=== PATIENT | male | born 1965 | race Caucasian/White ===

== ENCOUNTER 2017-04-14 05:16 | Observation (INO) | payer OTHER ==
[~2017-04-14] VITALS: Ht 185.4 cm; Wt 127.0 kg
[~2017-04-14 05:16] MED LIST: AUGMENTIN 875 M1 TAB PO; BENZONATATE200 MG PO; CARVEDILOL12.5 MG PO; FUROSEMIDE20 MG PO; POTASSIUM CHLO10 ME1 PO; PRAVASTATIN SOD80 MG PO; PREDNISONE 10MG10 M1 PO; PREDNISONE20 MG PO; PRINIVIL 5MG5 MG PO; WARFARIN SODIUM10 MG PO; ZOLPIDEM TARTRAT5 MG PO
--- NOTE | 2017-04-14 05:21 | ED NEURO DEFICIT/STROKE ---
See Addendum History of Present Illness General Chief Complaint: General Adult Stated Complaint: "THINK HES HAVING A STROKE" PER Source: patient, family Exam Limitations: no limitations Vital Signs & Intake/Output Vital Signs & Intake/Output Vital Signs Date Time Temp Pulse Resp B/P B/P Pulse O2 O2 Flow FiO2 Mean Ox Delivery Rate 04/14 0732 97.0 82 18 120/78 97 Room Air 04/14 0727 97.0 82 18 120/78 97 Room Air 04/14 0651 123/72 04/14 0543 98 Room Air 04/14 0527 98.6 98 18 130/77 97 Room Air Allergies Coded Allergies: NO KNOWN ALLERGIES (04/23/13) Reconcile Medications AMOXICILLIN/POTASSIUM CLAV (Augmentin 875-125 Tablet) 875 MG/125 MG TAB 1 TAB PO BID BRONCHITIS Aspirin (Ecotrin*) 81 MG TABLET.DR 1 TAB PO DAILY HEART HEALTH (Reported) Benzonatate 200 MG CAPSULE 1 TAB PO Q8H PRN COUGH Bisacodyl (Ducodyl) 5 MG TABLET.DR 1 TAB PO DAILY CONSTIPATION (Reported) Carvedilol 12.5 MG TABLET 1 TAB PO BID BLOOD PRESSURE (Reported) Furosemide 20 MG TABLET 1 TAB PO DAILY WATER (Reported) Lisinopril (Prinivil) 5 MG TABLET 1 TAB PO DAILY BP (Reported) Potassium Chloride 10 MEQ TABLET.ER 1 TAB PO DAILY SUPPLEMENT (Reported) Pravastatin Sodium 80 MG TABLET 1 TAB PO DAILY CHOLESTEROL (Reported) Prednisone 20 MG TAB 2 TAB PO DAILY BREATHING Prednisone 10 MG TABLET 0 PO DAILY INFLAMMATION DAY 1: 6 TABS PO QD DAY 2: 5 TABS PO QD DAY 3: 4 TABS PO QD DAY 4: 3 TABS PO QD DAY 5: 2 TABS PO QD DAY 6: 1 TAB PO QD Warfarin Sodium 10 MG TABLET 1 TAB PO DAILY BLOOD THINNER (Reported) Zolpidem Tartrate 5 MG TAB 1 TAB PO DAILY INSOMNIA (Reported) Triage Nurses Notes Reviewed? yes Onset: Gradual Duration: hour(s): Timing: recent history Severity: moderate New Weakness: RUE Altered Sensations: RUE Impaired Ability: difficult to speak Baseline: alert, oriented x 3 Associated Symptoms: confusion, weakness HPI: 52 yo gentleman, h/o cva on coumadin, presents with difficulty speaking, increased drooling, worsening right sided weakness and difficulty with coordination. His also notes worse coordination of his right upper arm with slight weakness that is worse at baseline. Past History Travel History Traveled to [place] past 21 day No Medical History Any Pertinent Medical History? see below for history Neurological: STROKES (X3) (ON COUMADIN Cardiovascular: hypertension, hyperlipidemia, myocardial infarction Respiratory: asthma, bronchitis Gastrointestinal: constipation Psychiatric: depression History of MRSA: No History of VRE: No History of CDIFF: No Surgical History Surgical History: none Psychosocial History Who do you live with Spouse Services at Home Nursing, Occupational Therapy, Physical Therapy What is your primary language Hungarian Family History Hx Contributory? No Review of Systems Review of Systems Constitutional: Reports: no symptoms. EENTM: Reports: no symptoms. Respiratory: Reports: no symptoms. Cardiovascular: Reports: no symptoms. GI: Reports: no symptoms. Genitourinary: Reports: no symptoms. Musculoskeletal: Reports: no symptoms. Skin: Reports: no symptoms. Neurological/Psychological: Reports: no symptoms. Hematologic/Endocrine: Reports: no symptoms. Immunologic/Allergic: Reports: no symptoms. All Other Systems: Reviewed and Negative Physical Exam Physical Exam General Appearance: well developed/nourished, no apparent distress Head: atraumatic, normal appearance Eyes: Bilateral: normal appearance, PERRL, EOMI. Ears, Nose, Throat: normal ENT inspection, moist mucous membrane, hearing grossly normal Neck: normal inspection, supple Respiratory: normal breath sounds, chest non-tender, no respiratory distress, quiet respiration, lungs clear Cardiovascular: regular rate/rhythm, edema, normal peripheral pulses Gastrointestinal: normal bowel sounds, soft, non-tender, no organomegaly Back: normal inspection, normal range of motion Extremities: normal range of motion, evidence of injury, injury present Psychiatric: awake, alert Cranial Nerves: normal hearing, normal speech, PERRL, abnormal eye position Coordination/Gait: finger to nose with the right hand is slower than the left with increased Mrs. coordination. Motor/Sensory: right hand and elbow with 4+ out of 5 strength. Light touch intact. Reflexes: 1+: bicep (R), bicep (L), knee (R), knee (L). Core Measures CVA/TIA Diagnosis: Yes NIH Stroke Scale: Total 6 Comment: last known prior to going to bed... >4.5 hours... no need for lytics. Severe Sepsis Present: No Septic Shock Present: No Progress Differential Diagnosis: CVA versus TIA versus other Plan of Care: Orders Procedure Date/time Status Nothing by Mouth 04/14 B Active Intake & Output 04/14 0724 Active Patient Data 04/14 648 Active Saline Lock 04/[address] in observation 04/14 644 Active Misc Message 04/14 644 Active ED Holding Orders 04/14 644 Active Vital Signs 04/14 644 Active Code Status 04/14 644 Active FingerStick- Glucose 04/14 0540 Active EKG 04/14 534 Active TROPONIN LEVEL 04/14 519 Complete PARTIAL THROMBOPLASTIN TIME 04/14 519 Complete PROTHROMBIN TIME 04/14 519 Complete COMPREHENSIVE METABOLIC PANEL 04/14 519 Complete CBC WITHOUT DIFFERENTIAL 04/14 519 Complete Current Medications Sig/Sathya Start time Last Medication Dose Stop Time Status Admin Aspirin 325 MG ONCE ONE 04/14 645 UNVr 04/14 (Aspirin) 04/14 646 0652 Laboratory Tests 04/14/17 0525: Anion Gap 11, Estimated GFR > 60, BUN/Creatinine Ratio 17.8, Glucose 117 H, Calcium 8.6, Total Bilirubin 1.1, AST 23, ALT 42, Alkaline Phosphatase 69, Troponin I < 0.01, Total Protein 7.3, Albumin 4.1, Globulin 3.2, Albumin/ Globulin Ratio 1.3, PT 36.8 H, INR 3.55 H, APTT 40 H, CBC w Diff NO MAN DIFF REQ, RBC 4.59 L, MCV 90.0, MCH 30.5, RDW 13.7, MPV 7.9, Gran % 80.1 H, Lymphocytes % 9.2 L, Monocytes % 9.0, Eosinophils % 1.3, Basophils % 0.4, Absolute Granulocytes 10.9 H, Absolute Lymphocytes 1.3, Absolute Monocytes 1.2 H, Absolute Eosinophils 0.2, Absolute Basophils 0.1, PUBS MCHC 33.9 Diagnostic Imaging: Viewed by Me: Radiology Read, CT Scan. Discussed w/RAD: Radiology Read, CT Scan. Radiology Impression: head ct... chronic changes... non acute. Initial ED EKG: normal axis, normal intervals, normal p-waves, normal QRS complex, normal sinus rhythm Comments: PATIENT: MARIA DE JESUS MORIN PRESENT AGE: 52 PATIENT ACCOUNT NO: [id number] : 64 LOCATION: [facility] ORDERING PHYSICIAN: ADITI MIDDLETON MD SERVICE DATE: 04/14/17 EXAM TYPE: RAD - XRY-PORTABLE CHEST XRAY XR PORTABLE CHEST CLINICAL INFORMATION: CVA. COMPARISON: Chest x-ray July 09, 2016. TECHNIQUE: Portable frontal view of the chest was obtained. FINDINGS: Left pectoral dual-lead pacemaker is redemonstrated. Chronic right pleural thickening at the costophrenic angle. No focal consolidation, pleural effusion, or pneumothorax. There is linear atelectasis at the lung bases. IMPRESSION: No acute pulmonary process. DICTATED BY: ELMER GRAVES MD DATE/TIME DICTATED:04/14/17620 RADIO SCRIPT WRITER:MORRIS DATE/TIME TRANSCRIBED:04/14/17620 CONFIDENTIAL, DO NOT COPY WITHOUT APPROPRIATE AUTHORIZATION. <Electronically signed in Other Vendor System> SIGNED BY: ELMER GRAVES MD 04/14/17627 Departure Departure Disposition: STILL A PATIENT Condition: Stable Clinical Impression Primary Impression: CVA (cerebral vascular accident) Referrals: RACIEL ARNOLD MD (PCP/Family) Departure Forms: Customer Survey General Discharge Information Comments 04/14/17, 6:30pm...discussed with dr. miranda who will evaluate pt this morning... 6 :40am... discussed with dr. arnold Observation Note Spoke With: RACIEL ARNOLD MD Physician Advisor Notified: SRI ACEVEDO,PINO Doss Place Patient In: Non-ED OBS Care Area Rationale for Observation: My rational for observation is as follows . see above.
--- NOTE | 2017-04-14 05:28 | NUR ---
52yo SONA POPEO RM 6 W/ WHO STATES PT "MAY BE HAVING ANOTHER STROKE" SHE STATES YESTERDAY HE BEGAN W/INCREASED DROOLING, R SIDED WEAKNESS IS WORSENED. HX CVA X 3
--- NOTE | 2017-04-14 05:41 | NUR ---
LABS DRAWN -- LAV,BLUE,SST ALL SEMT TO LAB
[2017-04-14 05:46] LABS: ABSOLUTE BASOPHIL COUNT 0.1 /CUMM (0.0-0.2); ABSOLUTE EOSINOPHIL COUNT 0.2 /CUMM (0.0-0.7); ABSOLUTE GRANULOCYTE CT 10.9 /CUMM (1.4-6.5); ABSOLUTE LYMPH COUNT 1.3 /CUMM (1.2-3.4); ABSOLUTE MONOCYTE COUNT 1.2 /CUMM (0.10-0.60); BASOPHIL % 0.4 % (0.0-2.0); EOSINOPHIL % 1.3 % (0-5); GRANULOCYTE % 80.1 % (42.2-75.2); HEMATOCRIT 41.3 % (42-52); MEAN CORPUSCULAR HGB 30.5 PG (27.0-31.0); MEAN CORPUSCULAR HGB CONC 33.9 G/DL (33.0-37.0); MEAN PLATELET VOLUME 7.9 FL (7.4-10.4); PLATELET COUNT 224 /CUMM (130-400); RBC DISTRIBUTION WIDTH 13.7 % (11.5-14.5); RED BLOOD CELL CT 4.59 /CUMM (4.70-6.10); WHITE BLOOD CELL COUNT 13.7 /CUMM (4.8-10.8)
[2017-04-14 05:54] LABS: PT 36.8 SEC (9.4-12.5); PTT 40 SEC (25-37)
[2017-04-14] MEDS ORDERED: ASPIRIN EC81 M1 PO (05:54)
[2017-04-14] MEDS ORDERED: DUCODYL5 M1 PO (05:55)
--- NOTE | 2017-04-14 05:56 | NUR ---
TO CT VIA STRETCHER
--- NOTE | 2017-04-14 06:14 | NUR ---
RETD FROM CT
--- NOTE | 2017-04-14 06:24 | CT SCAN REPORT ---
EXAMINATION: CT HEAD WITHOUT CONTRAST CLINICAL INFORMATION: Headache. COMPARISON: Head CT February 26, 2014. TECHNIQUE: Contiguous axial imaging was performed from the skull base to vertex without intravenous administration of contrast. FINDINGS: Chronic infarct within the left basal ganglia and chronic left-sided wallerian degeneration redemonstrated. There is also stable hypoattenuation throughout the left centrum semiovale suggesting chronic ischemic change. There is no intracranial hemorrhage, hydrocephalus, extra-axial surface collection, midline shift, or other herniation pattern. Brown to white matter differentiation is diffusely maintained without evidence of an evolved acute territorial infarct. The basilar cisterns are preserved. No significant soft tissue abnormality. No acute osseous abnormality. There is mild mucosal thickening within the maxillary sinuses, ethmoid air cells, and frontal sinuses bilaterally. IMPRESSION: - No acute intracranial abnormality. - Stable chronic ischemic changes.
--- NOTE | 2017-04-14 06:28 | RADIOLOGY REPORT ---
XR PORTABLE CHEST CLINICAL INFORMATION: CVA. COMPARISON: Chest x-ray July 09, 2016. TECHNIQUE: Portable frontal view of the chest was obtained. FINDINGS: Left pectoral dual-lead pacemaker is redemonstrated. Chronic right pleural thickening at the costophrenic angle. No focal consolidation, pleural effusion, or pneumothorax. There is linear atelectasis at the lung bases. IMPRESSION: No acute pulmonary process.
--- NOTE | 2017-04-14 06:35 | NUR ---
DR MIDDLETON SPEAKING W/DR ARNOLD PT TO BE ADMITTED TELE OBS.
--- NOTE | 2017-04-14 07:24 | NUR ---
ASSUMED CARE , PT AWAKE AND ALERT, RESTING ON STRETCHER WITH LIGHTS DIMMED WATCHING TV, PT DENIES PAIN AT THIS TIME, SPEECH NOTED TO BE CLEAR BY THIS NURSE. PT STATES THAT HE HAS HISTORY OF 3 CVA'S IN THE PAST WITH R SIDE DEFICITS, STATES THAT HE IS ABLE TO AMBULATE WITH WALKER. OFFERS NO COMPLAINTS OF PAIN. NSR ON MONITOR WITH HR 82 AT THIS TIME.
[2017-04-14 07:32] VITALS: BP 120/78
--- NOTE | 2017-04-14 07:38 | History & Physical ---
[facility] 04/14/17 0733: General Information and HPI MD Statement: I have seen and personally examined MARIA DE JESUS MORIN and documented this H&P. The patient is a 52 year old M who presented with a patient stated chief complaint of [difficulty speaking]. Source of Information: patient, family Exam Limitations: no limitations History of Present Illness: is a 52 yo man with PMHx. of ischemic cardiomyopathy, [employer] AICD, 3 CVA (All at 2012, last one at 2012) on Coumadin with some residual weakness in R lower extrimity, COPD, ashma, HLD presented to ED with a c/o of worsening weakness of R LE, drooling and confusion. Most of the history is obtained from the patient whose at bedside, patient is able to answer some questions but he has difficulty finding words. 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 He was complaining of headache started yesterday, which improved today. Patient also complaint of worsening wheezing and SOB. He also noticed urinary frequency but no burning sensation, no chnages in urinary color. review of system was negative for chest pain, N, V, fever, chills, dizziness, palpitation, no acute vision changes, and there is no changes bowel habits. Patient is not following with neurologist on a regualr base, his current care provider is , sales planning coordinator: , last seen by sales planning coordinator last November. Allergies/Medications Allergies: Coded Allergies: NO KNOWN ALLERGIES (04/23/13) Home Med list AMOXICILLIN/POTASSIUM CLAV (Augmentin 875-125 Tablet) 875 MG/125 MG TAB 1 TAB PO BID BRONCHITIS Aspirin (Ecotrin*) 81 MG TABLET.DR 1 TAB PO DAILY HEART HEALTH (Reported) Benzonatate 200 MG CAPSULE 1 TAB PO Q8H PRN COUGH Bisacodyl (Ducodyl) 5 MG TABLET.DR 1 TAB PO DAILY CONSTIPATION (Reported) Carvedilol 12.5 MG TABLET 1 TAB PO BID BLOOD PRESSURE (Reported) Furosemide 20 MG TABLET 1 TAB PO DAILY WATER (Reported) Lisinopril (Prinivil) 5 MG TABLET 1 TAB PO DAILY BP (Reported) Potassium Chloride 10 MEQ TABLET.ER 1 TAB PO DAILY SUPPLEMENT (Reported) Pravastatin Sodium 80 MG TABLET 1 TAB PO DAILY CHOLESTEROL (Reported) Prednisone 20 MG TAB 2 TAB PO DAILY BREATHING Prednisone 10 MG TABLET 0 PO DAILY INFLAMMATION DAY 1: 6 TABS PO QD DAY 2: 5 TABS PO QD DAY 3: 4 TABS PO QD DAY 4: 3 TABS PO QD DAY 5: 2 TABS PO QD DAY 6: 1 TAB PO QD Warfarin Sodium 10 MG TABLET 1 TAB PO DAILY BLOOD THINNER (Reported) Zolpidem Tartrate 5 MG TAB 1 TAB PO DAILY INSOMNIA (Reported) Past History Travel History Traveled to [place] past 21 day No Medical History Neurological: STROKES (X3) (ON COUMADIN Cardiovascular: hypertension, hyperlipidemia, myocardial infarction Respiratory: asthma, bronchitis Gastrointestinal: constipation Psychiatric: depression History of MRSA: No History of VRE: No History of CDIFF: No Surgical History Surgical History: non-contributory Past Family/Social History Psychosocial History Services at Home: Nursing, Occupational Therapy, Physical Therapy Smoking Status: Former Smoker (Quit at 2012) ETOH Use: occasional use Illicit Drug Use: denies illicit drug use Review of Systems Review of Systems Constitutional: Reports: no symptoms. EENTM: Reports: no symptoms. Cardiovascular: Reports: no symptoms. GI: Reports: no symptoms. Genitourinary: Reports: frequency. Musculoskeletal: Reports: no symptoms. Skin: Reports: no symptoms. Neurological/Psychological: Reports: confusion, headache, unable to move lower ext (R. LE weakness), weakness. Hematologic/Endocrine: Reports: no symptoms. All Other Systems: Reviewed and Negative Exam & Diagnostic Data Last 24 Hrs of Vital Signs/I&O Vital Signs Date Time Temp Pulse Resp B/P B/P Pulse O2 O2 Flow FiO2 Mean Ox Delivery Rate 04/14 0750 98 Room Air 04/14 0732 97.0 82 18 120/78 97 Room Air 04/14 07 97.0 82 18 120/78 97 Room Air 04/14 0651 123/72 04/14 0543 98 Room Air 04/14 527 98.6 98 18 130/77 97 Room Air Intake & Output 04/14 1600 04/14 0800 04/14 0000 Intake Total 300 Output Total Balance 300 Intake, Oral 300 Patient 280 lb Weight Physical Exam General Appearance Alert, Oriented X3, Cooperative, No Acute Distress Skin No Rashes, No Breakdown, No Significant Lesion Skin Temp/Moisture Exam: Warm/Dry HEENT Atraumatic, PERRLA, EOMI, Mucous Membr. moist/pink Neck Supple, No JVD Lymphatic Axillary nl, Cervical nl Cardiovascular Regular Rate, Normal S1, Normal S2 Lungs wheezing B/L Abdomen Normal Bowel Sounds, Soft, No Tenderness, distended Neurological Sensation Intact, Cranial Nerves 3-12 NL, decrease motor activity on R. LE about 1/5, Left LE 5/5 Upper extrimity:Rt.: 02/23, Lt:/5 Extremities No Edema, Normal Pulses Vascular Normal Pulses, Pulses Symmetrical Last 24 Hrs of Labs/Jeff: Laboratory Tests 04/14/17 0525: Anion Gap 11, Estimated GFR > 60, BUN/Creatinine Ratio 17.8, Glucose 117 H, Calcium 8.6, Total Bilirubin 1.1, AST 23, ALT 42, Alkaline Phosphatase 69, Troponin I < 0.01, Total Protein 7.3, Albumin 4.1, Globulin 3.2, Albumin/ Globulin Ratio 1.3, PT 36.8 H, INR 3.55 H, APTT 40 H, CBC w Diff NO MAN DIFF REQ, RBC 4.59 L, MCV 90.0, MCH 30.5, RDW 13.7, MPV 7.9, Gran % 80.1 H, Lymphocytes % 9.2 L, Monocytes % 9.0, Eosinophils % 1.3, Basophils % 0.4, Absolute Granulocytes 10.9 H, Absolute Lymphocytes 1.3, Absolute Monocytes 1.2 H, Absolute Eosinophils 0.2, Absolute Basophils 0.1, PUBS MCHC 33.9 Diagnostic Data EKG Results SR, 90, No acute changes since previous EKG, T-wave inversion is not new CXR Results No acute finding Other Results CT-Head: IMPRESSION: - No acute intracranial abnormality. - Stable chronic ischemic changes. Assessment/Plan Assessment: is a 52 yo man with PMHx. of ischemic cardiomyopathy, [employer] AICD, 3 CVA (All at 2012, last one at 2012) on Coumadin with some residual weakness in R lower extrimity, COPD, ashma, HLD presented to ED with a c/o of worsening weakness of R LE, drooling and confusion admitted to telemetry floor under observation for stroke. Vitals, examination, labs and imaging as above Assessment: #Worsening weakness of R. LE, drooling and confusion which is most likely 2/2 new cerebrovascular events #Hx. of 3 CVA now on coumadin #Hx Asthma, ?COPD with worsening wheezing and SOB #Hx. of HTN, HLD #Hx. of ischemic cardiomyopathy #Mild leukocytosis Plan: -Patient is admitted under observation to telemetry floor -Cardiology consult was obtained with group -Neurology consult obtaind with -Will continue ASA 81 mg daily -Will continue coumadin, 10mg every M, W, F, S 10MG, OTHER days 7mg of Coumadin -Will continue Parvastatin 80mg daily -Will start 40mg Solumedrol Q12 H -TRC eval -Troponin and EKG at 11:30 am -Carotid doppler -Echocardiography -NPO pending Official swallow evaluation -PT, OT -Lipid panel -Will order UA to r/o urinary infection given his complait of frequency and mild leukocytosis -Pain management pathway Full code DVT ppx: Coumadin As Ranked By This Provider Problem List: 1. CVA (cerebral vascular accident) 2. Asthma Core Measures/Miscellaneous Acute Coronary Syndrome ACS Diagnosis: No Cerebrovascular Accident CVA/TIA Diagnosis: Yes Congestive Heart Failure CHF Diagnosis: No Venous Thromboembolism VTE Risk Factors: Acute medical illness, Age > 40 No [facility] VTE prophylaxis d/t: No contraindications No VTE Pharm Prophylaxis d/t: No contraindications VTE Diagnosis: No VTE Type: NONE VTE Confirmed by (Test): NONE Severe Sepsis Severe Sepsis Present: No Septic Shock Septic Shock Present: No Miscellaneous Documentation Attending Case Discussed With: RACIEL ARNOLD MD Primary Care Physician: RACIEL ARNOLD MD Patient sees these Specialists Pattern Puncher Level of Patient Care: Telemetry RACIEL ARNOLD MD 04/14/17 1423: Attending Review Statement Attending Statement Attending Statement: examined this patient, agreed w/resident/PA/PARKING REGULATION ENFORCEMENT OFFICER, discussed with family, reviewed EMR data (avail), discussed with nursing, reviewed images, amended to note Attending Assessment/Plan: Problems: -New neurological deficit in a patient with previous CVA/TIA -Residual right hemiplegia and expressive aphasia -History of myocardial infarction -S/P PPM/AICD -Moderate to severe decrease in LVEF and previous echo (2013) -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
--- NOTE | 2017-04-14 08:09 | NUR ---
PTS SPOUSE AT BEDSIDE, PT TO US AT THIS TIME. NIH SCORE OF 1 AND GLASCOW 15.
--- NOTE | 2017-04-14 08:34 | NUR ---
PT RETURNED FROM US, PLACED BACK ON MONITOR, NOTED TO BE PACED WITH HR 82, PT NOTED TO BE WHEEZING WHEN HE RETURNED FROM US, STATES THAT SHE AMBULATED HIM TO THE BATHROOM AND HE WAS SOB, HOUSE STAFF AT BEDSIDE AND THIS NURSE REQUESTED BREATHING TREATMENT DUE TO PT IS AN ASTHMATIC. ORDER TO BE PLACED, THIS NURSE ALSO POINTED OUT THAT PT HAS A DIET ORDER AND THAT HE HAS A SWALLOW EVAL ORDERED. PER MD PATIENT TO BE NPO AT THIS TIME. PT AND SPOUSE MADE AWARE .
--- NOTE | 2017-04-14 08:42 | NUR ---
RESP CALLED FOR TREATMENT
--- NOTE | 2017-04-14 08:55 | NUR ---
PT ASSISTED INTO HOSPITAL BED AT THIS TIME. REMAINS AT BEDSIDE. WAITING ON RESP FOR BREATHING TREATMENT
--- NOTE | 2017-04-14 09:11 | NUR ---
PHYSICAL THERAPY AT BEDSIDE AT THIS TIME
--- NOTE | 2017-04-14 09:27 | NUR ---
PT AND AWARE THAT WE WILL NEED A URINE SAMPLE NEXT TIME HE HAS TO GO.
--- NOTE | 2017-04-14 09:43 | NUR ---
RESP AT BEDSIDE
--- NOTE | 2017-04-14 09:56 | NUR ---
REPORT TO MANNIE BLAIR ON FLOOR. RESP AT BEDSIDE
--- NOTE | 2017-04-14 10:10 | NUR ---
PER PATIENTS PT ALREADY TOOK ALL OF HIS AM MEDS AT HOME PRIOR TO COMING TO ER, PT DID NOT TAKE K-DUR, STATES THAT PT TAKES THAT AT NIGHT AND WOULD LIKE THE ORDER CHANGED TO REFLECT THAT. PHARMACY CALLED FOR THE 40 MG SOLUMEDROL IV.
--- NOTE | 2017-04-14 10:20 | NUR ---
PT MEDICATED WITH SOLUMEDROL PER ORDER, IMFORMED THAT HE HAS A BED BUT THAT IT IS IN THE PROCESS OF BEING CLEANED AT THIS TIME
--- NOTE | 2017-04-14 11:04 | NUR ---
URINE SPECIMEN OBTAINED AND TRIO SENT TO LAB
[2017-04-14 11:25] VITALS: BP 116/74
--- NOTE | 2017-04-14 12:24 | ULTRASOUND REPORT ---
EXAMINATION: US DUPLEX CAROTID AND VERTEBRAL CLINICAL INFORMATION: 32-year-old male with possible carotid artery stenosis. COMPARISON: None TECHNIQUE: Real-time ultrasound and Doppler techniques (integrating B-mode 2D vascular images, Doppler spectral analysis and color flow Doppler imaging) were utilized to interrogate the extracranial carotid and vertebral arteries bilaterally. The degree of stenosis determined by criteria similar to NASCET. FINDINGS: 1. On the right: No plaque is present at the carotid bifurcation and all velocity measurements are normal and do not suggest a stenosis of greater than 50% diameter reduction in the right ICA. The vertebral artery is patent demonstrating antegrade flow. The common carotid artery velocity is 120 cm/s. The internal carotid artery velocities are 78 cm/s systolic and 35 cm/s diastolic. The external carotid artery velocity is 114 cm/s. 2. On the left: A small amount of calcified plaque is present at the carotid bifurcation but velocity measurements are normal and do not suggest a stenosis of greater than 50% diameter reduction in the left ICA. The vertebral artery is patent demonstrating antegrade flow. The common carotid artery velocity is 116 cm/s. The internal carotid artery velocities are 41 cm/s systolic and 6 cm/s diastolic. The external carotid artery velocity is 103 cm/s. The external carotid arteries appear unremarkable. IMPRESSION: 1. There is a small amount of calcified plaque present in the left internal carotid artery with normal velocities consistent with a minimal 0-49% stenosis. The right side is normal with no plaque seen. 2. The vertebral arteries are patent and demonstrate antegrade flow.
--- NOTE | 2017-04-14 12:36 | Cons- Cardiology ---
General Information and HPI Consulting Request Date of Consult: 04/14/17 Requested By: CLAYTON ACEVEDO,RACIEL Moncada Reason for Consult: cva/tia/cardiomyopathy Primary animal nurse: Dr. Rodriguez Source of Information: patient, family, old records History of Present Illness: This is a 52-year-old male with a past medical history of prior myocardial infarction with ischemic cardiomyopathy and previous left ventricular thrombus maintained on full anticoagulation with Coumadin, prior CVAs/TIAs with residual neurologic deficits, asthma, and [employer] AICD. The patient is a somewhat limited historian and his was able to provide me with additional details. The patient was in his usual state of health but yesterday developed some right lower extremity weakness and "curling of his toes ". His also noted that he was the drooling and was less responsive to questions. She does report he has some dyspnea on exertion which has been grossly unchanged in recent weeks. Does have intermittent wheezing. Not associated with orthopnea, paroxysmal nocturnal dyspnea, subjective fevers, or increasing edema. He did complain of a headache. No difficulty swallowing per her report. He does not smoke and has been compliant with his Coumadin. No recent syncopal episodes. No obvious bleeding episodes. Allergies/Medications Allergies: Coded Allergies: NO KNOWN ALLERGIES (04/23/13) Home Med List: AMOXICILLIN/POTASSIUM CLAV (Augmentin 875-125 Tablet) 875 MG/125 MG TAB 1 TAB PO BID BRONCHITIS Aspirin (Ecotrin*) 81 MG TABLET.DR 1 TAB PO DAILY HEART HEALTH (Reported) Benzonatate 200 MG CAPSULE 1 TAB PO Q8H PRN COUGH Bisacodyl (Ducodyl) 5 MG TABLET.DR 1 TAB PO DAILY CONSTIPATION (Reported) Carvedilol 12.5 MG TABLET 1 TAB PO BID BLOOD PRESSURE (Reported) Furosemide 20 MG TABLET 1 TAB PO DAILY WATER (Reported) Lisinopril (Prinivil) 5 MG TABLET 1 TAB PO DAILY BP (Reported) Potassium Chloride 10 MEQ TABLET.ER 1 TAB PO DAILY SUPPLEMENT (Reported) Pravastatin Sodium 80 MG TABLET 1 TAB PO DAILY CHOLESTEROL (Reported) Prednisone 20 MG TAB 2 TAB PO DAILY BREATHING Prednisone 10 MG TABLET 0 PO DAILY INFLAMMATION DAY 1: 6 TABS PO QD DAY 2: 5 TABS PO QD DAY 3: 4 TABS PO QD DAY 4: 3 TABS PO QD DAY 5: 2 TABS PO QD DAY 6: 1 TAB PO QD Warfarin Sodium 10 MG TABLET 1 TAB PO DAILY BLOOD THINNER (Reported) Zolpidem Tartrate 5 MG TAB 1 TAB PO DAILY INSOMNIA (Reported) Current Medications: Current Medications Sig/Sathya Start time Last Medication Dose Route Stop Time Status Admin Albuterol Sulfate 3 ML EVERY 4 HRS/AWAKE 04/14 1200 AC 04/14 INH 0945 Aspirin 81 MG DAILY 04/15 1000 AC PO Aspirin 0 .STK-MED ONE 04/14 1006 DC PO Aspirin 0 .STK-MED ONE 04/14 0654 DC PO Aspirin 325 MG ONCE ONE 04/14 0645 DC 04/14 PO 04/14 0646 0652 Bisacodyl 5 MG DAILY 04/15 1000 AC PO Carvedilol 12.5 MG BID 04/14 2200 AC PO Clopidogrel Bisulfate 75 MG DAILY 04/14 1000 CAN PO Enoxaparin Sodium 40 MG DAILY 04/14 1000 CAN SC Furosemide 20 MG DAILY 04/14 1003 AC PO Lisinopril 5 MG DAILY 04/14 1002 AC PO Methylprednisolone 40 MG Q12 04/14 1000 AC 04/14 IV 1020 Multivitamins 1 TAB DAILY 04/14 1000 AC PO Potassium Chloride 10 MEQ DAILY 04/14 1003 AC PO Pravastatin Sodium 80 MG DAILY 04/14 1000 AC PO Warfarin Sodium 10 MG COUMADIN 1700 ONE 04/14 1700 UNVr PO 04/14 1701 Zolpidem Tartrate 5 MG AT BEDTIME 04/14 2200 AC PO Review of Systems Review of Systems: Review of systems as per HPI. The remainder of a 10 point review of systems was reviewed and was otherwise negative. 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 Home Services at Home: Nursing, Occupational Therapy, Physical Therapy Smoking Status: Never Smoked (Quit at 2012) ETOH Use: occasional use Illicit Drug Use: denies illicit drug use Exam & Diagnostic Data Vital Signs and I&O Vital Signs Date Time Temp Pulse Resp B/P B/P Pulse O2 O2 Flow FiO2 Mean Ox Delivery Rate 04/14 1125 98.3 93 20 116/74 96 Room Air 04/14 1017 Room Air Room Air 04/14 0945 97 Room Air Room Air 04/14 0750 98 Room Air 04/14 0732 97.0 82 18 120/78 97 Room Air 04/14 0727 97.0 82 18 120/78 97 Room Air 04/14 0651 123/72 04/14 0543 98 Room Air 04/14 0527 98.6 98 18 130/77 97 Room Air Intake & Output 04/14 1600 04/14 0800 04/14 0000 04/13 1600 04/13 0804/13 0000 Intake Total 300 Output Total Balance 300 Intake, Oral 300 Patient 280 lb Weight Physical Exam: General: no apparent distress. Alert. Eyes: No obvious scleral icterus. HEENT: No jugular venous distention or abnormal jugular venous pulsations. Cardiovascular: Normal intensity S1/S2. Regular. ICD noted. Respiratory: Lungs clear to auscultation bilaterally. Abdomen: Soft, no guarding or rebound tenderness. Musculoskeletal: No clubbing or cyanosis noted, no edema Skin: Warm Neurologic: Chronic asymmetric weakness Lymph: No gross lymphadenopathy. Labs/Jeff Results: Laboratory Tests 04/14 04/14 1104 0525 Chemistry Sodium (137 - 145 mmol/L) 138 Potassium (3.5 - 5.1 mmol/L) 4.5 Chloride (98 - 107 mmol/L) 107 Carbon Dioxide (22 - 30 mmol/L) 19 L Anion Gap (5 - 16) 11 BUN (9 - 20 mg/dL) 16 Creatinine (0.7 - 1.2 mg/dL) 0.9 Estimated GFR (>60 ml/min) > 60 BUN/Creatinine Ratio (7 - 25 %) 17.8 Glucose (65 - 99 mg/dL) 117 H Calcium (8.4 - 10.2 mg/dL) 8.6 Total Bilirubin (0.2 - 1.3 mg/dL) 1.1 AST (17 - 59 U/L) 23 ALT (21 - 72 U/L) 42 Alkaline Phosphatase (< 127 U/L) 69 Troponin I (<0.11 ng/ml) < 0.01 Total Protein (6.3 - 8.2 g/dL) 7.3 Albumin (3.5 - 5.0 g/dL) 4.1 Globulin (1.9 - 4.2 gm/dL) 3.2 Albumin/Globulin Ratio (1.1 - 2.2 %) 1.3 Coagulation PT (9.4 - 12.5 SEC) 36.8 H INR (0.90 - 1.17) 3.55 H APTT (25 - 37 SEC) 40 H Hematology CBC w Diff NO MAN DIFF REQ WBC (4.8 - 10.8 /CUMM) 13.7 H RBC (4.70 - 6.10 /CUMM) 4.59 L Hgb (14.0 - 18.0 G/DL) 14.0 Hct (42 - 52 %) 41.3 L MCV (80.0 - 94.0 FL) 90.0 MCH (27.0 - 31.0 PG) 30.5 RDW (11.5 - 14.5 %) 13.7 Plt Count (130 - 400 /CUMM) 224 MPV (7.4 - 10.4 FL) 7.9 Gran % (42.2 - 75.2 %) 80.1 H Lymphocytes % (20.5 - 51.1 %) 9.2 L Monocytes % (1.7 - 9.3 %) 9.0 Eosinophils % (0 - 5 %) 1.3 Basophils % (0.0 - 2.0 %) 0.4 Absolute Granulocytes (1.4 - 6.5 /CUMM) 10.9 H Absolute Lymphocytes (1.2 - 3.4 /CUMM) 1.3 Absolute Monocytes (0.10 - 0.60 /CUMM) 1.2 H Absolute Eosinophils (0.0 - 0.7 /CUMM) 0.2 Absolute Basophils (0.0 - 0.2 /CUMM) 0.1 PUBS MCHC (33.0 - 37.0 G/DL) 33.9 Urines Urine Color (YEL,AMB,STR) Pending Urine Clarity (CLEAR) Pending Urine pH (5.0 - 8.0) Pending Ur Specific [place] (1.001 - 1.035) Pending Urine Protein (NEG,<30 MG/DL) Pending Urine Ketones (NEG) Pending Urine Nitrite (NEG) Pending Urine Bilirubin (NEG) Pending Urine Urobilinogen (0.1 - 1.0 EU/dl) Pending Ur Leukocyte Esterase (NEG) Pending Ur Microscopic SEDIMENT EXAMINED Urine RBC (0 - 5 /HPF) Pending Urine Hemoglobin (NEG) Pending Urine Glucose (N MG/DL) Pending Diagnostic Data EKG Results Tracing was personally reviewed shows a sinus rhythm with previous anterior infarct CXR Results IMPRESSION: No acute pulmonary process. Other Results Head CT IMPRESSION: - No acute intracranial abnormality. - Stable chronic ischemic changes. Carotid doppler IMPRESSION: 1. There is a small amount of calcified plaque present in the left internal carotid artery with normal velocities consistent with a minimal 0-49% stenosis. The right side is normal with no plaque seen. 2. The vertebral arteries are patent and demonstrate antegrade flow. Assessment/Plan Assessment/Plan 1. History of previous CVAs/TIAs with possible recurrence 2. History of prior myocardial infarction with ischemic cardiomyopathy and previous left ventricular thrombus maintained on full anticoagulation with Coumadin 3. Asthma 4. Medtronic AICD 5. Low level carotid disease CT scan without obvious evidence of recurrent CVA. Unclear if this represents a recurrent neurologic episode. His AICD limits our ability to do MRI imaging. Asthma management per the medical team. No evidence of decompensated congestive heart failure. Echocardiogram has been ordered and we will follow-up those results. INR is therapeutic. He should be continued on his outpatient cardiac medications including aspirin, statin, beta jose luis, and COLEEN inhibitor. No evidence of high level carotid artery lesions by Doppler. Follow-up with neurology consult. If this is felt to be a recurrence of CVA/TIA despite therapeutic INR we may need to consider adding an additional antiplatelet agent versus transition to daily Lovenox (his does tell me his INR tends to fluctuate and he does enjoy salads). I will arrange to have his ICD interrogated. Timothy Rodriguez MD [facility] Consult Acknowledgment - Thank you for your consult request.
--- NOTE | 2017-04-14 14:22 | Admission Certification ---
Admission Certification Certification Statement - As attending physician, I certify that at the time of - admission, based on clinical presentation, severity of - symptoms, need for further diagnostic testing and - therapeutic interventions, and risk of adverse outcomes - without in-hospital treatment, in my clinical assessment, - this patient requires an acute hospital stay for a minimum - of two nights or longer. I have also considered psychsocial - factors such as support system, advanced age, financial - issues, cognitive issues, and failed out-patient treatments, - past re-admission history, safety of patient, and lack of - compliance as applicable. Specific rationale supporting this admission is: Evaluation and treatment of new neurological deficit in spite of adequate treatment.
--- NOTE | 2017-04-14 14:25 | Cons- Neurology ---
General Information and HPI Consulting Request Date of Consult: 04/14/17 Requested By: CLAYTON ACEVEDO,RACIEL Moncada Reason for Consult: speech difficulty Source of Information: patient, old records Exam Limitations: language barrier History of Present Illness: 52-year-old male who yesterday evening noted onset of speech difficulty. At that time he did not no change in weakness. States that he does have chronic weakness of the right lower extremity likely attributed to previous stroke. There was no accompanying headache or diplopia or vertigo. Patient went to bed but when he awakened noted onset of headache and dizziness and nausea The EMS was then called. There was no loss of consciousness, fell, or seizure activity. Per records, he was observed to be drooling and per records noted that the right lower extremity seemed weaker than it had been previously He has had wheezing and some shortness of breath noted recently He feels that today in terms have started to improve slightly Allergies/Medications Allergies: Coded Allergies: NO KNOWN ALLERGIES (04/23/13) Home Med List: AMOXICILLIN/POTASSIUM CLAV (Augmentin 875-125 Tablet) 875 MG/125 MG TAB 1 TAB PO BID BRONCHITIS Aspirin (Ecotrin*) 81 MG TABLET.DR 1 TAB PO DAILY HEART HEALTH (Reported) Benzonatate 200 MG CAPSULE 1 TAB PO Q8H PRN COUGH Bisacodyl (Ducodyl) 5 MG TABLET.DR 1 TAB PO DAILY CONSTIPATION (Reported) Carvedilol 12.5 MG TABLET 1 TAB PO BID BLOOD PRESSURE (Reported) Furosemide 20 MG TABLET 1 TAB PO DAILY WATER (Reported) Lisinopril (Prinivil) 5 MG TABLET 1 TAB PO DAILY BP (Reported) Potassium Chloride 10 MEQ TABLET.ER 1 TAB PO DAILY SUPPLEMENT (Reported) Pravastatin Sodium 80 MG TABLET 1 TAB PO DAILY CHOLESTEROL (Reported) Prednisone 20 MG TAB 2 TAB PO DAILY BREATHING Prednisone 10 MG TABLET 0 PO DAILY INFLAMMATION DAY 1: 6 TABS PO QD DAY 2: 5 TABS PO QD DAY 3: 4 TABS PO QD DAY 4: 3 TABS PO QD DAY 5: 2 TABS PO QD DAY 6: 1 TAB PO QD Warfarin Sodium 10 MG TABLET 1 TAB PO DAILY BLOOD THINNER (Reported) Zolpidem Tartrate 5 MG TAB 1 TAB PO DAILY INSOMNIA (Reported) Current Medications: Current Medications Sig/Sathya Start time Last Medication Dose Route Stop Time Status Admin Albuterol Sulfate 3 ML EVERY 4 HRS/AWAKE 04/14 1200 AC 04/14 INH 0945 Aspirin 81 MG DAILY 04/15 1000 AC PO Aspirin 0 .STK-MED ONE 04/14 1006 DC PO Aspirin 0 .STK-MED ONE 04/14 0654 DC PO Aspirin 325 MG ONCE ONE 04/14 0645 DC 04/14 PO 04/14 0646 0652 Bisacodyl 5 MG DAILY 04/15 1000 AC PO Carvedilol 12.5 MG BID 04/14 2200 AC PO Clopidogrel Bisulfate 75 MG DAILY 04/14 1000 CAN PO Enoxaparin Sodium 40 MG DAILY 04/14 1000 CAN SC Furosemide 20 MG DAILY 04/14 1003 AC PO Lisinopril 5 MG DAILY 04/14 1002 AC PO Methylprednisolone 40 MG Q12 04/14 1000 AC 04/14 IV 1020 Multivitamins 1 TAB DAILY 04/14 1000 AC PO Potassium Chloride 10 MEQ DAILY 04/14 1003 AC PO Pravastatin Sodium 80 MG DAILY 04/14 1000 AC PO Warfarin Sodium 10 MG COUMADIN 1700 ONE 04/14 1700 AC PO 04/14 1701 Zolpidem Tartrate 5 MG AT BEDTIME 04/14 2200 AC PO Review of Systems Review of Systems: Denies headache, diplopia, difficulty swallowing, chest pains, vomiting, head trauma, falls, significant swelling, loss of consciousness, fever He has had recent wheezing and mild shortness of breath Past History Travel History Traveled to [place] past 21 day No Medical History Blood Transfusion Hx: No Neurological: STROKES (X3) (ON COUMADIN EENT: NONE Cardiovascular: hypertension, hyperlipidemia, myocardial infarction Respiratory: asthma, bronchitis Gastrointestinal: constipation Hepatic: NONE Renal: NONE Musculoskeletal: NONE Psychiatric: depression Endocrine: NONE Blood Disorders: NONE 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 Home Services at Home: Nursing, Occupational Therapy, Physical Therapy Smoking Status: Never Smoked (Quit at 2012) ETOH Use: occasional use Illicit Drug Use: denies illicit drug use Exam & Diagnostic Data Vital Signs and I&O Vital Signs Date Time Temp Pulse Resp B/P B/P Pulse O2 O2 Flow FiO2 Mean Ox Delivery Rate 04/14 1130 96 Room Air Room Air 04/14 1125 98.3 93 20 116/74 96 Room Air 04/14 1017 Room Air Room Air 04/14 0945 97 Room Air Room Air 04/14 0750 98 Room Air 04/14 0732 97.0 82 18 120/78 97 Room Air 04/14 0727 97.0 82 18 120/78 97 Room Air 04/14 0651 123/72 04/14 0543 98 Room Air 04/14 0527 98.6 98 18 130/77 97 Room Air Intake & Output 04/14 1600 04/14 0800 04/14 0000 Intake Total 300 Output Total Balance 300 Intake, Oral 300 Patient 280 lb Weight Physical Exam: Alert, follows all commands, nonfluent aphasia Heart sounds normal, no carotid bruits, distal pulses intact Extraocular movements full, pupils equal reactive, fundi benign, visual wilder intact, mild right facial weakness, no facial sensory loss, palate tongue shoulders and hearing intact Normal tone both upper and lower extremities, mild difficulty with fine motor movements on the right, mild right hip flexion weakness No deficit to light touch and position modalities Right-sided hyperreflexia, right plantar upgoing Gait deferred since patient currently at bedrest Last 48 Hours of Lab Results: Laboratory Tests 04/14 04/14 04/14 1250 1250 1104 Chemistry Troponin I Pending Triglycerides Pending Cancelled Cholesterol Pending Cancelled LDL Cholesterol, Calc Pending Cancelled HDL Cholesterol Pending Cancelled Cholesterol/HDL Ratio Pending Cancelled Urines Urinalysis LIGHT H Urine Color (YEL,AMB,STR) YEL Urine Clarity (CLEAR) HAZY H Urine pH (5.0 - 8.0) 6.0 Ur Specific [place] (1.001 - 1.035) 1.025 Urine Protein (NEG,<30 MG/DL) NEG Urine Ketones (NEG) NEG Urine Nitrite (NEG) NEG Urine Bilirubin (NEG) NEG Urine Urobilinogen (0.1 - 1.0 EU/dl) 0.2 Ur Leukocyte Esterase (NEG) NEG Ur Microscopic SEDIMENT EXAMINED Urine RBC (0 - 5 /HPF) 1-3 Urine WBC (0 - 2 /HPF) 1-3 H Ur Epithelial Cells (NONE,FEW) FEW Urine Bacteria (NEG/NONE) RARE H Urine Mucus (FEW,NONE) MOD H Urine Hemoglobin (NEG) TRACE-LYSED H Urine Glucose (N MG/DL) NEG 04/14 525 Chemistry Sodium (137 - 145 mmol/L) 138 Potassium (3.5 - 5.1 mmol/L) 4.5 Chloride (98 - 107 mmol/L) 107 Carbon Dioxide (22 - 30 mmol/L) 19 L Anion Gap (5 - 16) 11 BUN (9 - 20 mg/dL) 16 Creatinine (0.7 - 1.2 mg/dL) 0.9 Estimated GFR (>60 ml/min) > 60 BUN/Creatinine Ratio (7 - 25 %) 17.8 Glucose (65 - 99 mg/dL) 117 H Calcium (8.4 - 10.2 mg/dL) 8.6 Total Bilirubin (0.2 - 1.3 mg/dL) 1.1 AST (17 - 59 U/L) 23 ALT (21 - 72 U/L) 42 Alkaline Phosphatase (< 127 U/L) 69 Troponin I (<0.11 ng/ml) < 0.01 Total Protein (6.3 - 8.2 g/dL) 7.3 Albumin (3.5 - 5.0 g/dL) 4.1 Globulin (1.9 - 4.2 gm/dL) 3.2 Albumin/Globulin Ratio (1.1 - 2.2 %) 1.3 Coagulation PT (9.4 - 12.5 SEC) 36.8 H INR (0.90 - 1.17) 3.55 H APTT (25 - 37 SEC) 40 H Hematology CBC w Diff NO MAN DIFF REQ WBC (4.8 - 10.8 /CUMM) 13.7 H RBC (4.70 - 6.10 /CUMM) 4.59 L Hgb (14.0 - 18.0 G/DL) 14.0 Hct (42 - 52 %) 41.3 L MCV (80.0 - 94.0 FL) 90.0 MCH (27.0 - 31.0 PG) 30.5 RDW (11.5 - 14.5 %) 13.7 Plt Count (130 - 400 /CUMM) 224 MPV (7.4 - 10.4 FL) 7.9 Gran % (42.2 - 75.2 %) 80.1 H Lymphocytes % (20.5 - 51.1 %) 9.2 L Monocytes % (1.7 - 9.3 %) 9.0 Eosinophils % (0 - 5 %) 1.3 Basophils % (0.0 - 2.0 %) 0.4 Absolute Granulocytes (1.4 - 6.5 /CUMM) 10.9 H Absolute Lymphocytes (1.2 - 3.4 /CUMM) 1.3 Absolute Monocytes (0.10 - 0.60 /CUMM) 1.2 H Absolute Eosinophils (0.0 - 0.7 /CUMM) 0.2 Absolute Basophils (0.0 - 0.2 /CUMM) 0.1 PUBS MCHC (33.0 - 37.0 G/DL) 33.9 Imaging/Other Studies: CT FINDINGS: Chronic infarct within the left basal ganglia and chronic left-sided wallerian degeneration redemonstrated. There is also stable hypoattenuation throughout the left centrum semiovale suggesting chronic ischemic change. There is no intracranial hemorrhage, hydrocephalus, extra-axial surface collection, midline shift, or other herniation pattern. Brown to white matter differentiation is diffusely maintained without evidence of an evolved acute territorial infarct. The basilar cisterns are preserved. No significant soft tissue abnormality. No acute osseous abnormality. There is mild mucosal thickening within the maxillary sinuses, ethmoid air cells, and frontal sinuses bilaterally. carotid u/s: IMPRESSION: 1. There is a small amount of calcified plaque present in the left internal carotid artery with normal velocities consistent with a minimal 0-49% stenosis. The right side is normal with no plaque seen. 2. The vertebral arteries are patent and demonstrate antegrade flow. Assessment/Plan Assessment: recurrent cerebrovascular accident, not evident on CT Patient has pacemaker and therefore likely unable to undergo MRI scan of brain Carotid ultrasounds do not show any significant stenosis Patient has been on therapeutic dosages of warfarin and has been on low-dose aspirin He has previous history of cardiomyopathy and cardiac thrombus Recommendations: Echocardiogram Consider change of aspirin to clopidogrel High-dose statin Speech therapy Consult Acknowledgment - Thank you for your consult request.
[2017-04-14 15:30] VITALS: BP 108/68
--- NOTE | 2017-04-14 19:00 | NUR ---
PATIENT HEART RATE INCREASES TO 140 AT ABOUT 646P.M. PATIENT AT THE TIME WAS RESTING IN BED. ON ASSESSMENT PATIENT DENEIS CP, LIGHTHEADEDNESS. BP 122/88. HR 130'S TO 140'S. DR VENTURA ON FLOOR AND WAS MADE AWARE. EKG ORDERED. PATIENT RATE BROKE BEFORE EKG WAS DONE. PATIENT REMAINS ALERT AND ORIENTATED DURING EPISODE. RESPONDING TO QUESTIONS APPROPRIATELY. WILL FOLLOW PLAN OF CARE.
--- NOTE | 2017-04-14 21:42 | ECHOCARDIOGRAM REPORT ---
MARIA DE JESUS MORIN Age: 52 : 1965 Gender: M Exam Date: 04/14/2017 11:33 Exam Location: 1 [address] Ht (in): 73 Wt (lb): 280 BSA: 2.60 BP: 120 / 78 Ordering Physician: LUZ LAWRENCE MD Referring Physician: LUZ LAWRENCE MD Technologist: Baldemar Samuel [facility] Room Number: [id number] Indications: STROKE Rhythm: Technical Quality: Technically difficult study FINDINGS Left Ventricle Left ventricular cavity size normal (with apical dilatation). Normal left ventricular wall thickness. There is dyskinesis/aneurysmal dilatation of the mid to distal anteroseptum, apex, and distal inferior/lateral wall. Definity contrast was used with no obvious evidence of intracardiac thrombus in the left ventricular aneurysm. Left ventricular ejection fraction is estimated at 35 %. Right Ventricle Right ventricle not well visualized, grossly normal. Catheter/pacemaker wire in the right ventricular cavity. Right Atrium Right atrium not well visualized, grossly normal. Left Atrium Left atrium not well visualized, grossly normal. Mitral Valve Structurally normal mitral valve. No mitral stenosis. Trace mitral regurgitation. Aortic Valve Aortic valve not well visualized, grossly normal. No aortic stenosis. Tricuspid Valve Tricuspid valve not well visualized, grossly normal. No tricuspid stenosis. Trace to mild tricuspid regurgitation. Unable to estimate the right ventricular systolic pressure. Pulmonic Valve Pulmonic valve not well visualized. Pericardium No pericardial effusion. Great Vessels Normal size aortic root and proximal ascending aorta. CONCLUSIONS Technically difficult study. Left ventricular cavity size normal (with apical dilatation). Normal left ventricular wall thickness. There is dyskinesis/aneurysmal dilatation of the mid to distal anteroseptum, apex, and distal inferior/lateral wall. Definity contrast was used with no obvious evidence of intracardiac thrombus in the left ventricular aneurysm. Left ventricular ejection fraction is estimated at 35 %. Right ventricle not well visualized, grossly normal. Catheter/pacemaker wire in the right ventricular cavity. Unable to estimate the right ventricular systolic pressure. Shaq Rodriguez M.D. (Electronically Signed) Final Date: 14 Apr 2017 21:41 MEASUREMENTS (Male / Female) Normal Values 2D ECHO LV Diastolic Diameter PLAX 5.7 cm 4.2 - 5.9 / 3.9 - 5.3 cm LV Systolic Diameter PLAX 4.7 cm 2.1 - 4.0 cm LV Fractional Shortening PLAX 17.5 % 25 - 46 % LV Ejection Fraction 2D Teich 36.0 % IVS Diastolic Thickness 1.0 cm LVPW Diastolic Thickness 1.1 cm LV Relative Wall Thickness 0.4 RV Internal Dim ED PLAX 3.0 cm 1.9 - 3.8 cm LVOT Diameter 2.4 cm Aortic Root Diameter 3.3 cm LA Systolic Diameter LX 3.1 cm 3.0 - 4.0 / 2.7 - 3.8 cm LA Volume 45.0 cm 18 - 58 / 22 - 52 cm Ascending Aorta Diameter 3.5 cm DOPPLER AV Peak Velocity 119.0 cm/s AV Peak Gradient 5.7 mmHg AV Mean Velocity 79.6 cm/s AV Mean Gradient 3.0 mmHg AV Velocity Time Integral 22.1 cm LVOT Peak Velocity 87.2 cm/s LVOT Peak Gradient 3.0 mmHg LVOT Mean Velocity 53.2 cm/s LVOT Mean Gradient 1.0 mmHg LVOT Velocity Time Integral 17.0 cm LVOT Stroke Volume 76.9 cm AV Area Cont Eq vti 3.5 cm AV Area Cont Eq pk 3.3 cm MV Peak Velocity 82.7 cm/s MV Peak Gradient 2.7 mmHg MV Mean Velocity 52.7 cm/s MV Mean Gradient 1.0 mmHg Mitral E Point Velocity 53.3 cm/s Mitral A Point Velocity 76.5 cm/s Mitral E to A Ratio 0.7 MV PHT Velocity 85.5 cm/s MV Deceleration [place] 598.0 cm/s MV Pressure Half Time 42.9 ms MV Area PHT 5.1 cm MV Deceleration Time 391.0 ms PV Peak Velocity 78.6 cm/s PV Peak Gradient 2.5 mmHg PV Mean Velocity 51.8 cm/s PV Mean Gradient 1.0 mmHg PV Velocity Time Integral 14.1 cm LV E' Lateral Velocity 8.1 cm/s Mitral E to LV E' Lateral Ratio 6.6 LV E' Septal Velocity 5.0 cm/s Mitral E to LV E' Septal Ratio 10.7
[2017-04-14 23:25] VITALS: BP 110/60
[2017-04-15 07:53] LABS: ABSOLUTE BASOPHIL COUNT 0 /CUMM (0.0-0.2); ABSOLUTE EOSINOPHIL COUNT 0 /CUMM (0.0-0.7); ABSOLUTE GRANULOCYTE CT 13.9 /CUMM (1.4-6.5); ABSOLUTE LYMPH COUNT 1.2 /CUMM (1.2-3.4); ABSOLUTE MONOCYTE COUNT 0.4 /CUMM (0.10-0.60); BASOPHIL % 0 % (0.0-2.0); EOSINOPHIL % 0 % (0-5); GRANULOCYTE % 89.8 % (42.2-75.2); HEMATOCRIT 43.2 % (42-52); MEAN CORPUSCULAR HGB 30.3 PG (27.0-31.0); MEAN CORPUSCULAR HGB CONC 33.3 G/DL (33.0-37.0); MEAN CORPUSCULAR VOLUME 90.9 FL (80.0-94.0); MEAN PLATELET VOLUME 8.1 FL (7.4-10.4); PLATELET COUNT 205 /CUMM (130-400); RBC DISTRIBUTION WIDTH 14.5 % (11.5-14.5); RED BLOOD CELL CT 4.75 /CUMM (4.70-6.10)
[2017-04-15 08:34] LABS: PT 44.3 SEC (9.4-12.5)
[2017-04-15 08:42] VITALS: BP 122/78
[2017-04-15 08:51] LABS: WHITE BLOOD CELL COUNT 15.4 /CUMM (4.8-10.8)
--- NOTE | 2017-04-15 10:09 | PN- Housestaff ---
TERRYKAHLIL 04/15/17 0951: Subjective Follow-up For: CVA/TIA Shortness of breath Tele-Events Since Last Visit: NSR overnight Subjective: Offers no complaint this morning. Reports no difficulty swallowing or speaking. Reports improved breathing. No chest pain, palpitations, light-headedness or dizziness. Review of Systems Constitutional: Reports: see HPI. Objective Last 24 Hrs of Vital Signs/I&O Vital Signs Date Time Temp Pulse Resp B/P B/P Pulse O2 O2 Flow FiO2 Mean Ox Delivery Rate 04/15 0945 80 122/90 04/15 0945 98.1 80 18 122/90 04/15 0842 98.1 75 18 122/78 96 Room Air 04/15 0816 96 Room Air 04/14 2325 97.6 87 16 110/60 93 Room Air 04/14 2210 78 130/80 04/14 1820 96 Room Air 04/14 1600 94 Room Air Room Air 04/14 1530 98.9 91 16 108/68 94 Room Air 04/14 1130 96 Room Air Room Air 04/14 1125 98.3 93 20 116/74 96 Room Air 04/14 1017 Room Air Room Air Intake & Output 04/15 1600 04/15 0800 04/15 0000 Intake Total 100 200 Output Total Balance 100 200 Intake, Oral 100 200 Physical Exam General Appearance: Alert, Oriented X3, Cooperative HEENT: Atraumatic, PERRLA, EOMI, Mucous Membr. moist/pink Cardiovascular: Regular Rate, Normal S1, Normal S2 Lungs: Clear to Auscultation, Normal Air Movement Abdomen: Normal Bowel Sounds, Soft, No Tenderness Extremities: No Clubbing, No Cyanosis Current Medications: Current Medications Sig/Sathya Start time Last Medication Dose Route Stop Time Status Admin Albuterol Sulfate 3 ML EVERY 4 HRS/AWAKE 04/14 1200 AC 04/15 INH 0806 Amoxicillin/ 875 MG Q12 04/14 2200 AC 04/15 Clavulanate Potassium PO 0945 Aspirin 81 MG DAILY 04/15 1000 CAN PO Aspirin 0 .STK-MED ONE 04/14 1006 DC PO Bisacodyl 5 MG DAILY 04/15 1000 AC 04/15 PO 0945 Carvedilol 12.5 MG BID 04/14 2200 AC 04/15 PO 0945 Clopidogrel Bisulfate 75 MG DAILY 04/14 1604 AC 04/15 PO 0945 Furosemide 20 MG DAILY 04/14 1003 AC 04/15 PO 0945 Lisinopril 5 MG DAILY 04/14 1002 AC 04/15 PO 0945 Methylprednisolone 40 MG Q12 04/14 1000 AC 04/15 IV 0948 Multivitamins 1 TAB DAILY 04/14 1000 AC 04/15 PO 0945 Potassium Chloride 10 MEQ DAILY 04/14 1003 AC 04/15 PO 0945 Pravastatin Sodium 80 MG DAILY 04/14 1000 AC 04/15 PO 0945 Warfarin Sodium 10 MG COUMADIN 1700 ONE 04/14 1700 DC 04/14 PO 04/14 1701 1738 Zolpidem Tartrate 5 MG AT BEDTIME 04/14 2200 AC 04/14 PO 2200 Last 24 Hrs of Lab/Jeff Results Last 24 Hrs of Labs/Mics: Laboratory Tests 04/15/17 0645: Anion Gap 13, Estimated GFR > 60, BUN/Creatinine Ratio 18.8, PT 44.3 *H, INR 4.28 *H, CBC w Diff NO MAN DIFF REQ, RBC 4.75, MCV 90.9, MCH 30.3, RDW 14.5, MPV 8.1, Gran % 89.8 H, Lymphocytes % 7.6 L, Monocytes % 2.6, Eosinophils % 0, Basophils % 0 L, Absolute Granulocytes 13.9 H, Absolute Lymphocytes 1.2, Absolute Monocytes 0.4, Absolute Eosinophils 0, Absolute Basophils 0, PUBS MCHC 33.3 04/14/17 1250: Troponin I < 0.01, Triglycerides 86, Cholesterol 170, LDL Cholesterol, Calc 115, HDL Cholesterol 38 L, Cholesterol/HDL Ratio 4 04/14/17 1250: Triglycerides Cancelled, Cholesterol Cancelled, LDL Cholesterol, Calc Cancelled, HDL Cholesterol Cancelled, Cholesterol/HDL Ratio Cancelled 04/14/17 1104: Urinalysis LIGHT H, Urine Color YEL, Urine Clarity HAZY H, Urine pH 6.0, Ur Specific [place] 1.025, Urine Protein NEG, Urine Ketones NEG, Urine Nitrite NEG, Urine Bilirubin NEG, Urine Urobilinogen 0.2, Ur Leukocyte Esterase NEG, Ur Microscopic SEDIMENT EXAMINED, Urine RBC 1-3, Urine WBC 1-3 H, Ur Epithelial Cells FEW, Urine Bacteria RARE H, Urine Mucus MOD H, Urine Hemoglobin TRACE- LYSED H, Urine Glucose NEG Assessment/Plan Assessment: 52 year old gentleman with previous IL, LV thrombus post IL, maintained on full anticoagulation with Coumadin, previous h/o stroke admitted here for a possible new stroke. 1. Recurrent CVA: ASA switched to Plavix per Neurology. Given patient's previous LV thrombus, and possible recurrent CVA this time, role of Coumadin plus DAPT is debatable. We will continue high dose statin. 2. H/o LV thrombus: Echo reveals apical dilatation, but no intracardiac thrombus in LV aneurysm. Antiocagulation with Coumadin. Hold Coumadin today, INR 4.28. LVEF 35%, continue Lasix. Continue Coreg, Lisinopril and statin. 3. COPD: Switch to PO steroids. Rapid PO taper. TRC nebs. Heart healthy diet - chopped and regular thins Full Code DVT proph addresed by Coumadin use, INR 4.28. Problem List: 1. CVA (cerebral vascular accident) Pain Ratin Pain Location: None Pain Goal: Remain pain free Pain Plan: Tylenol Tomorrow's Labs & Rationales: INR Other labs not needed. RACIEL ARNOLD MD 04/15/17 1435: Attending MD Review Statement Attending Statement Attending MD Statement: examined this patient, discuss w/resident/PA/LOAN CONSULTANT, agreed w/resident/PA/LOAN CONSULTANT, discussed with family, reviewed EMR data (avail), discussed with nursing, discussed with case mgmt, amended to note Attending Assessment/Plan: Mr. Viera states he feels much improved today. Notes improvement in speech and strength in his right wrist and hand. He states that his breathing is also much improved with TRC nebs. He is afebrile with stable heart rate, respirations, and blood pressure. He is saturating adequately on room air. He is in no acute distress. Pulmonary exam is benign as is his cardiac exam. INR today is 4.28(desirable range per Dr. Yu his e learning developer is 3.7-4.3). At this point he can begin discharge planning. Education as to diet and warfarin would be pursued. A home INR monitor as well as a nebulizer machine and circuits should also be put in place. Home PT and OT should also be arranged. I agree with the change to oral steroids and a rapid taper.
--- NOTE | 2017-04-15 10:49 | PN- Cardiology ---
Subjective Subjective: The patient is awake, alert The events of the last 24 hours as well as telemetry were reviewed. Review of Systems: The review of systems is negative for chest pains, palpitations nor lightheadedness. The remainder of the 14 point review of systems is noncontributory with the exception of above. Objective Vital Signs and I&Os Vital Signs Date Time Temp Pulse Resp B/P B/P Pulse O2 O2 Flow FiO2 Mean Ox Delivery Rate 04/15 0945 80 122/90 04/15 0945 98.1 80 18 122/90 04/15 0842 98.1 75 18 122/78 96 Room Air 04/15 0816 96 Room Air 04/14 2325 97.6 87 16 110/60 93 Room Air 04/14 2210 78 130/80 04/14 1820 96 Room Air 04/14 1600 94 Room Air Room Air 04/14 1530 98.9 91 16 108/68 94 Room Air 04/14 1130 96 Room Air Room Air 04/14 1125 98.3 93 20 116/74 96 Room Air Intake & Output 04/15 1600 04/15 0800 04/15 0000 04/14 1600 04/14 0800 04/14 0000 Intake Total 100 200 300 300 Output Total Balance 100 200 300 300 Intake, Oral 100 200 300 300 Patient 280 lb Weight Physical Exam: General: Nontoxic, no apparent distress. HEENT: Sclera and conjunctiva within normal limits, without xanthelasmas. Neck: Carotids 2+ without bruits. Respiratory: Clear to auscultation, air movement is good, without accessory respiratory muscle use. Heart: Regular rate and rhythm, without murmurs, without JVD. Abdomen: Soft, nontender, no masses, normoactive bowel sounds. Extremities: Without clubbing, cyanosis, without edema. Neuro: Right-sided facial weakness Skin: Within normal limits without lesions. Psych: Mood and affect: Normal Current Medications: Current Medications Sig/Sathya Start time Last Medication Dose Route Stop Time Status Admin Albuterol Sulfate 3 ML EVERY 4 HRS/AWAKE 04/14 1200 AC 04/15 INH 0806 Amoxicillin/ 875 MG Q12 04/14 2200 AC 04/15 Clavulanate Potassium PO 45 Aspirin 81 MG DAILY 04/15 1000 CAN PO Bisacodyl 5 MG DAILY 04/15 1000 AC 04/15 PO 0945 Carvedilol 12.5 MG BID 04/14 2200 AC 04/15 PO 0945 Clopidogrel Bisulfate 75 MG DAILY 04/14 1604 AC 04/15 PO 0945 Furosemide 20 MG DAILY 04/14 1003 AC 04/15 PO 0945 Lisinopril 5 MG DAILY 04/14 1002 AC 04/15 PO 0945 Methylprednisolone 40 MG Q12 04/14 1000 DC 04/15 IV 0948 Multivitamins 1 TAB DAILY 04/14 1000 AC 04/15 PO 0945 Potassium Chloride 10 MEQ DAILY 04/14 1003 AC 04/15 PO 0945 Pravastatin Sodium 80 MG DAILY 04/14 1000 AC 04/15 PO 0945 Prednisone 10 MG DAILY 04/24 1000 AC PO 04/25 1001 Prednisone 20 MG DAILY 04/22 1000 AC PO 04/23 1001 Prednisone 30 MG DAILY 04/20 1000 AC PO 04/21 1001 Prednisone 40 MG DAILY 04/18 1000 AC PO 04/19 1001 Prednisone 50 MG DAILY 04/16 1000 DC PO 04/26 0959 Prednisone 50 MG DAILY 04/16 1000 AC PO 04/17 1001 Warfarin Sodium 10 MG COUMADIN 1700 ONE 04/14 1700 DC 04/14 PO 04/14 1701 1738 Zolpidem Tartrate 5 MG AT BEDTIME 04/14 220 AC 04/14 PO 2200 Results Last 48 Hrs of Labs/Mics: Laboratory Tests 04/15/17 0645: Anion Gap 13, Estimated GFR > 60, BUN/Creatinine Ratio 18.8, PT 44.3 *H, INR 4.28 *H, CBC w Diff NO MAN DIFF REQ, RBC 4.75, MCV 90.9, MCH 30.3, RDW 14.5, MPV 8.1, Gran % 89.8 H, Lymphocytes % 7.6 L, Monocytes % 2.6, Eosinophils % 0, Basophils % 0 L, Absolute Granulocytes 13.9 H, Absolute Lymphocytes 1.2, Absolute Monocytes 0.4, Absolute Eosinophils 0, Absolute Basophils 0, PUBS MCHC 33.3 04/14/17 1250: Troponin I < 0.01, Triglycerides 86, Cholesterol 170, LDL Cholesterol, Calc 115, HDL Cholesterol 38 L, Cholesterol/HDL Ratio 4 04/14/17 1250: Triglycerides Cancelled, Cholesterol Cancelled, LDL Cholesterol, Calc Cancelled, HDL Cholesterol Cancelled, Cholesterol/HDL Ratio Cancelled 04/14/17 1104: Urinalysis LIGHT H, Urine Color YEL, Urine Clarity HAZY H, Urine pH 6.0, Ur Specific [place] 1.025, Urine Protein NEG, Urine Ketones NEG, Urine Nitrite NEG, Urine Bilirubin NEG, Urine Urobilinogen 0.2, Ur Leukocyte Esterase NEG, Ur Microscopic SEDIMENT EXAMINED, Urine RBC 1-3, Urine WBC 1-3 H, Ur Epithelial Cells FEW, Urine Bacteria RARE H, Urine Mucus MOD H, Urine Hemoglobin TRACE- LYSED H, Urine Glucose NEG 04/14/17 0525: Anion Gap 11, Estimated GFR > 60, BUN/Creatinine Ratio 17.8, Glucose 117 H, Calcium 8.6, Total Bilirubin 1.1, AST 23, ALT 42, Alkaline Phosphatase 69, Troponin I < 0.01, Total Protein 7.3, Albumin 4.1, Globulin 3.2, Albumin/ Globulin Ratio 1.3, PT 36.8 H, INR 3.55 H, APTT 40 H, CBC w Diff NO MAN DIFF REQ, RBC 4.59 L, MCV 90.0, MCH 30.5, RDW 13.7, MPV 7.9, Gran % 80.1 H, Lymphocytes % 9.2 L, Monocytes % 9.0, Eosinophils % 1.3, Basophils % 0.4, Absolute Granulocytes 10.9 H, Absolute Lymphocytes 1.3, Absolute Monocytes 1.2 H, Absolute Eosinophils 0.2, Absolute Basophils 0.1, PUBS MCHC 33.9 Assessment/Plan Assessment/Plan 1. History of previous CVAs/TIAs with possible recurrence 2. History of prior myocardial infarction with ischemic cardiomyopathy and previous left ventricular thrombus maintained on full anticoagulation with Coumadin 3. Asthma 4. Medtronic AICD 5. Low level carotid disease The patient has had a recurrent CVA as per neurology consultation despite low- dose aspirin and Coumadin therapy. Neurology recommendations regarding changing aspirin to clopidogrel is appreciated. Given his history of ischemic cardiomyopathy, further consideration for continuing low-dose aspirin and adding clopidogrel as triple therapy should also be considered. Given the patient was above therapeutic levels with regards to his Coumadin, consideration for follow-up with hematology regarding Coumadin resistance would as well be appropriate. Home INR monitoring may assist in better stability of his and coagulation level. Continue telemetry? Yes
[2017-04-15] MEDS ORDERED: PREDNISONE10 M1 PO (14:32)
[2017-04-15] MEDS ORDERED: PLAVIX75 M1 PO (14:32)
--- NOTE | 2017-04-15 14:36 | Patient Discharge Instructions ---
Discharge Instructions General Discharge Information You were seen/treated for: Stroke COPD Watch for these problems: Unexpected wekaness, facial droop, difficulty speaking, walking. Lightheadedness, dizziness. Breathing difficulty. Special Instructions: Please follow up with PCP in 1-2 weeks of discharge. Please follow up with binder cutter. Please follow up with Neurologist. Please have INRs checked regularly for optimal coumadin dosing. Please follow-up with the earth moving technician as an outpatient for further workup Diet Recommended Diet: Heart Healthy Activity Activity Self Limited: Yes Acute Coronary Syndrome Inclusion Criteria At DC or during hospital stay patient has or had the following: ACS DIAGNOSIS No Discharge Core Measures Meds if any: Prescribed or Continued at Discharge Meds if any: NOT Prescribed or Continued at Discharge Congestive Heart Failure Inclusion Criteria At DC or during hospital stay patient has or had the following: CHF DIAGNOSIS No Discharge Core Measures Meds if any: Prescribed or Continued at Discharge Meds if any: NOT Prescribed or Continued at Discharge Cerebrovascular accident Inclusion Criteria At DC or during hospital stay patient has or had the following: CVA/TIA Diagnosis Yes Discharge Core Measures Meds if any: Prescribed or Continued at Discharge Antithrombotic Yes Statin (required if LDL =>70) Yes Anticoagulant Yes Meds if any: NOT Prescribed or Continued at Discharge Venous thromboembolism Inclusion Criteria VTE Diagnosis No VTE Type NONE VTE Confirmed by (Test) NONE Discharge Core Measures - Per Current guidelines, there needs to be overlap - treatment for the first 5 days of Warfarin therapy. - If discharged on Warfarin prior to 5 days of - overlap therapy, the patient will need to be - assessed for post discharge needs including - *Post discharge parental anticoagulation - *Warfarin and/or parental anticoagulation education - *Follow up date to check INR post discharge At least 5 days overlap therapy as Inpatient No Meds if any: Prescribed or Continued at Discharge Note: Overlap Therapy is Warfarin and Anticoagulant Meds if any: NOT Prescribed or Continued at Discharge
[2017-04-15 16:18] VITALS: BP 118/78
--- NOTE | 2017-04-15 20:57 | NUR ---
AROUND 2019 PT WAS SEEN WITH A HR OF 130-140 AND A POSSIBLE CHANGE IN RHYTHM SO DR. MEY BRISCOE NOTIFIED AND STAT EKG PERFORMED. ONCE CHECKED WILL DETERMINE IF FURTHER ACTIONS ARE REQUIRED
[2017-04-16 00:42] VITALS: BP 124/68
--- NOTE | 2017-04-16 06:19 | PN- Housestaff ---
SHELDON ROYAL MD,NÉSTOR 04/16/17 0618: Subjective Follow-up For: CVA/TIA Shortness of breath Tele-Events Since Last Visit: SR 70-80S mostly, did have few episodes of 120 Subjective: Patient had episodes of Tachycardia and EKG was repeated No complains this morning No shortness of breath No swallowing issues overnight No chest pain, palpitations, light-headedness or dizziness Review of Systems Constitutional: Reports: see HPI. Objective Last 24 Hrs of Vital Signs/I&O Vital Signs Date Time Temp Pulse Resp B/P B/P Pulse O2 O2 Flow FiO2 Mean Ox Delivery Rate 04/16 0042 97.1 78 18 124/68 94 Room Air 04/16 0000 Room Air 04/15 2050 96 122/74 04/15 2030 97 Room Air 04/15 1708 98 Room Air 04/15 1618 98.2 88 18 118/78 95 Room Air 04/15 1600 95 Room Air Room Air 04/15 0945 80 122/90 04/15 0945 98.1 80 18 122/90 04/15 0842 98.1 75 18 122/78 96 Room Air 04/15 0816 96 Room Air 04/15 0800 95 Room Air Room Air Intake & Output 04/16 0800 04/16 0000 04/15 1600 Intake Total 300 400 500 Output Total 400 Balance 300 400 100 Intake, Oral 300 400 500 Output, Urine 400 Physical Exam General Appearance: Alert, Oriented X3, Cooperative HEENT: Atraumatic, PERRLA, EOMI, Mucous Membr. moist/pink Cardiovascular: Regular Rate, Normal S1, Normal S2 Lungs: WHEEZING B/L Abdomen: Normal Bowel Sounds, Soft, No Tenderness Neurological: Right sided facial weakness Extremities: No Clubbing, No Cyanosis Current Medications: Current Medications Sig/Sathya Start time Last Medication Dose Route Stop Time Status Admin Albuterol Sulfate 3 ML EVERY 4 HRS/AWAKE 04/14 1200 AC 04/15 INH 2016 Amoxicillin/ 875 MG Q12 04/14 2200 AC 04/15 Clavulanate Potassium PO 2048 Bisacodyl 5 MG DAILY 04/15 1000 AC 04/15 PO 0945 Carvedilol 12.5 MG BID 04/14 2200 AC 04/15 PO 2049 Clopidogrel Bisulfate 75 MG DAILY 04/14 1604 AC 04/15 PO 0945 Furosemide 20 MG DAILY 04/14 1003 AC 04/15 PO 0945 Lisinopril 5 MG DAILY 04/14 1002 AC 04/15 PO 0945 Methylprednisolone 40 MG Q12 04/14 1000 DC 04/15 IV 0948 Multivitamins 1 TAB DAILY 04/14 1000 AC 04/15 PO 0945 Potassium Chloride 10 MEQ DAILY 04/14 1003 AC 04/15 PO 0945 Pravastatin Sodium 80 MG DAILY 04/14 1000 AC 04/15 PO 0945 Prednisone 10 MG DAILY 04/24 1000 AC PO 04/25 1001 Prednisone 20 MG DAILY 04/22 1000 AC PO 04/23 1001 Prednisone 30 MG DAILY 04/20 1000 AC PO 04/21 1001 Prednisone 40 MG DAILY 04/18 1000 AC PO 04/19 1001 Prednisone 50 MG DAILY 04/16 1000 DC PO 04/26 0959 Prednisone 50 MG DAILY 04/16 1000 AC PO 04/17 1001 Zolpidem Tartrate 5 MG AT BEDTIME 04/14 2200 AC 04/15 PO 2158 Last 24 Hrs of Lab/Jeff Results Last 24 Hrs of Labs/Mics: Laboratory Tests 04/15/17 0645: Anion Gap 13, Estimated GFR > 60, BUN/Creatinine Ratio 18.8, PT 44.3 *H, INR 4.28 *H, CBC w Diff NO MAN DIFF REQ, RBC 4.75, MCV 90.9, MCH 30.3, RDW 14.5, MPV 8.1, Gran % 89.8 H, Lymphocytes % 7.6 L, Monocytes % 2.6, Eosinophils % 0, Basophils % 0 L, Absolute Granulocytes 13.9 H, Absolute Lymphocytes 1.2, Absolute Monocytes 0.4, Absolute Eosinophils 0, Absolute Basophils 0, PUBS MCHC 33.3 Assessment/Plan Assessment: 52 year old gentleman with previous MA, LV thrombus post MA, maintained on full anticoagulation with Coumadin, previous h/o stroke admitted here for a possible new stroke. Recurrent CVA ASA switched to Plavix per Neurology. Given patient's previous LV thrombus, and possible recurrent CVA this time, role of Coumadin plus DAPT is debatable. We will continue high dose statin. H/o LV thrombus Echo reveals apical dilatation, but no intracardiac thrombus in LV aneurysm. Antiocagulation with Coumadin. Hold Coumadin today, INR 4.28. LVEF 35% Continue Lasix. Continue Coreg, Lisinopril and statin. COPD On PO steroids Rapid PO taper TRC nebs Heart healthy diet - chopped and regular thins Full Code DVT proph addresed by Coumadin use Problem List: 1. COPD (chronic obstructive pulmonary disease) 2. CVA (cerebral vascular accident) Pain Ratin Pain Location: None Pain Goal: Pain 4 or less Pain Plan: Pain management Tomorrow's Labs & Rationales: None DVT/Prophylaxis: pharmacological [facility] 04/16[facility]17 1338: Attending MD Review Statement Attending Statement Attending MD Statement: examined this patient, discuss w/resident/PA/PRODUCT SAFETY ASSOCIATE, agreed w/resident/PA/PRODUCT SAFETY ASSOCIATE, discussed with family, reviewed EMR data (avail), discussed with nursing, discussed with case mgmt, reviewed images, amended to note Attending Assessment/Plan: Tachy rhythm noted INR elevated Feels better however The review of systems is negative for chest pains, palpitations nor lightheadedness. The remainder of the 14 point review of systems is noncontributory Physical Exam: General: Nontoxic, no apparent distress. HEENT: Sclera and conjunctiva within normal limits, without xanthelasmas. Neck: Carotids 2+ without bruits. Respiratory: Clear to auscultation, air movement is good, without accessory respiratory muscle use. Heart: Regular rate and rhythm, without murmurs, without JVD. Abdomen: Soft, nontender, no masses, normoactive bowel sounds. Extremities: Without clubbing, cyanosis, without edema. Neuro: Right-sided facial weakness Skin: Within normal limits without 1. History of previous CVAs/TIAs with possible recurrence 2. History of prior myocardial infarction with ischemic cardiomyopathy and previous left ventricular thrombus maintained on full anticoagulation with Coumadin 3. Asthma 4. Medtronic AICD 5. Low level carotid disease REC cont to watch in tele INR in am Cardio to follow Plavix Will consider dc if he is stable with no sig tachyarrhymia etc in am will follow pt may need to be transitioned to lovenox needs out pt heme eval
--- NOTE | 2017-04-16 06:44 | NUR ---
AT APPROX 0400 PT WAS SEEN IN [facility] POSSIBLE AFIB, HR SUSTAINING 110-140'S. DR MEY BRISCOE NOTIFIED AND EKG WAS ORDERED AND TAKEN; PT FEELING ASYMPTOMATIC NO COMPLAINTS OF PALPATAIONS, VSS; WILL CONTINUE TO MONITOR
--- NOTE | 2017-04-16 06:46 | NUR ---
AT APPROX 0515 PT WAS SEEN IN [facility] AROUND 80'S-90'S; DR MEY BRISCOE NOTIFIED; WILL CONTINUE TO MONITOR FOR EKG CHANGES
[2017-04-16 08:00] VITALS: BP 118/60
[2017-04-16 08:09] LABS: PT 49.3 SEC (9.4-12.5)
--- NOTE | 2017-04-16 13:48 | PN- Cardiology ---
Subjective Subjective: Clinically stable with no new issues. Objective Vital Signs and I&Os Vital Signs Date Time Temp Pulse Resp B/P B/P Pulse O2 O2 Flow FiO2 Mean Ox Delivery Rate 04/16 0947 78 118/80 04/16 0946 78 118/80 04/16 0800 Room Air 04/16 0800 97.8 89 20 118/60 96 Room Air 04/16 0754 96 Room Air 04/16 0042 97.1 78 18 124/68 94 Room Air 04/16 0000 Room Air 04/15 2050 96 122/74 04/15 2030 97 Room Air 04/15 1708 98 Room Air 04/15 1618 98.2 88 18 118/78 95 Room Air 04/15 1600 95 Room Air Room Air Intake & Output 04/16 1600 04/16 0800 04/16 0000 04/15 1600 04/15 0800 04/15 0000 Intake Total 300 400 500 100 200 Output Total 400 Balance 300 400 100 100 200 Intake, Oral 300 400 500 100 200 Output, Urine 400 Current Medications: Current Medications Sig/Sathya Start time Last Medication Dose Route Stop Time Status Admin Albuterol Sulfate 3 ML EVERY 4 HRS/AWAKE 04/14 1200 AC 04/16 INH 1149 Amoxicillin/ 875 MG Q12 04/14 2200 AC 04/16 Clavulanate Potassium PO 0946 Bisacodyl 5 MG DAILY 04/15 1000 AC 04/16 PO 0946 Carvedilol 12.5 MG BID 04/14 2200 AC 04/16 PO 0946 Clopidogrel Bisulfate 75 MG DAILY 04/14 1604 AC 04/16 PO 0946 Furosemide 20 MG DAILY 04/14 1003 AC 04/16 PO 0946 Lisinopril 5 MG DAILY 04/14 1002 AC 04/16 PO 0947 Multivitamins 1 TAB DAILY 04/14 1000 AC 04/16 PO 0947 Potassium Chloride 10 MEQ DAILY 04/14 1003 AC 04/16 PO 0946 Pravastatin Sodium 80 MG DAILY 04/14 1000 AC 04/16 PO 0946 Prednisone 10 MG DAILY 04/24 1000 AC PO 04/25 1001 Prednisone 20 MG DAILY 04/22 1000 AC PO 04/23 1001 Prednisone 30 MG DAILY 04/20 1000 AC PO 04/21 1001 Prednisone 40 MG DAILY 04/18 1000 AC PO 04/19 1001 Prednisone 50 MG DAILY 04/16 1000 DC PO 04/26 0959 Prednisone 50 MG DAILY 04/16 1000 AC 04/16 PO 04/17 1001 0947 Zolpidem Tartrate 5 MG AT BEDTIME 04/14 2200 AC 04/15 PO 2158 Results Last 48 Hrs of Labs/Mics: Laboratory Tests 04/16/17 0600: PT 49.3 *H, INR 4.77 *H 04/15/17 0645: Anion Gap 13, Estimated GFR > 60, BUN/Creatinine Ratio 18.8, PT 44.3 *H, INR 4.28 *H, CBC w Diff NO MAN DIFF REQ, RBC 4.75, MCV 90.9, MCH 30.3, RDW 14.5, MPV 8.1, Gran % 89.8 H, Lymphocytes % 7.6 L, Monocytes % 2.6, Eosinophils % 0, Basophils % 0 L, Absolute Granulocytes 13.9 H, Absolute Lymphocytes 1.2, Absolute Monocytes 0.4, Absolute Eosinophils 0, Absolute Basophils 0, PUBS MCHC 33.3 Assessment/Plan Assessment/Plan Assessment/Plan 1. History of previous CVAs/TIAs with possible recurrence 2. History of prior myocardial infarction with ischemic cardiomyopathy and previous left ventricular thrombus maintained on full anticoagulation with Coumadin 3. Paroxysmal atrial fibrillation on telemetry 4. Asthma 5. Medtronic AICD 6. Low level carotid disease Recommendations: - OOB as tolerated. - Continue current management - Maintain therapeutic INR - Consider hematology input to better assess anticoagulation issues. Continue telemetry? Yes
[2017-04-16 17:37] VITALS: BP 124/76
[2017-04-17 01:05] VITALS: BP 112/80
[2017-04-17 07:36] LABS: PT 28.5 SEC (9.4-12.5)
[2017-04-17 08:05] VITALS: BP 134/87
--- NOTE | 2017-04-17 08:47 | PN- Housestaff ---
Subjective Follow-up For: CVA/TIA Shortness of breath Complaints: no complaints Tele-Events Since Last Visit: Normal sinus rhythm overnight heart rate in the range of 70s to 50s, although there is a reported episode of sinus tachycardia, with a max heart rate of 151 at around 5 AM today, heart rate was in 140s for about 7 minutes. Subjective: Patient is seen and examined the morning, seems better slept well overnight. He was tachycardic in the morning with a max heart rate was in 150s, without any reported chest pain palpitations or shortness of breath. Patient is requesting to be discharged today possible Review of Systems Constitutional: Denies: chills, diaphoresis, fever, malaise. EENTM: Denies: blurred vision, double vision, visual changes, eye pain, eye drainage, eye tearing, icterus. Cardiovascular: Denies: chest pain, edema, orthopena, palpitations. Respiratory: Denies: cough, hemoptysis, orthopnea. Gastrointestinal: Denies: abdominal pain, bloating, constipation. Genitourinary: Denies: discharge, dysuria, frequency. Objective Last 24 Hrs of Vital Signs/I&O Vital Signs Date Time Temp Pulse Resp B/P B/P Pulse O2 O2 Flow FiO2 Mean Ox Delivery Rate 04/17 0805 98.4 95 17 134/87 96 Nasal Cannula 04/17 0801 96 Room Air 04/17 0105 97.7 72 18 112/80 96 Room Air 04/17 0000 96 Room Air 04/16 1737 98.0 97 18 124/76 96 04/16 1555 96 Room Air 04/16 0947 78 118/80 04/16 0946 78 118/80 Physical Exam General Appearance: Alert, Oriented X3 Skin: No Rashes, No Breakdown Skin Temp/Moisture Exam: Warm/Dry HEENT: Atraumatic, PERRLA Neck: Supple, No JVD Cardiovascular: Regular Rate, Normal S1, Normal S2 Lungs: Clear to Auscultation, Normal Air Movement Abdomen: Normal Bowel Sounds, Soft, No Tenderness Neurological: Normal Speech, Strength at 5/5 X4 Ext Last 24 Hrs of Lab/Jeff Results Last 24 Hrs of Labs/Mics: Laboratory Tests 04/17/17 0610: PT 28.5 H, INR 2.74 H Assessment/Plan Assessment: 52 year old gentleman with previous NM, LV thrombus post NM, maintained on full anticoagulation with Coumadin, previous h/o stroke admitted here for a possible new stroke. Recurrent CVA ASA switched to Plavix per Neurology. Given patient's previous LV thrombus, and possible recurrent CVA this time, role of Coumadin plus DAPT is debatable. Maintain INR between 3 and 4 due to high risk of recurrent CVA. INR today is 2.7 we will dose 7-1/2 Coumadin today recheck INR tomorrow We will continue high dose statin. 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 Antiocagulation with Coumadin. Hold Coumadin today, INR 4.28. LVEF 35% Continue Lasix. Continue Coreg, Lisinopril and statin. COPD Continue tapered prednisone. 2 more days of Augmentin TR nebs. If patient remains stable will be discharged today with health services. Heart healthy diet - chopped and regular thins Full Code DVT proph addresed by Coumadin use Problem List: 1. CVA (cerebral vascular accident) 2. Asthma Pain Ratin Pain Location: No pain at this time Pain Goal: Remain pain free Pain Plan: When necessary Tylenol Tomorrow's Labs & Rationales: no need
[2017-04-17] MEDS ORDERED: PREDNISONE10 M1 PO ×3 (09:12→09:31)
[2017-04-17] MEDS ORDERED: AUGMENTIN 875-1 EACH PO (09:22)
[2017-04-17 09:23] VITALS: BP 134/87
--- NOTE | 2017-04-17 13:36 | PN- Cardiology ---
Subjective Subjective: The patient continues to be fine. Discharge plan for today. Outpatient follow- up with cardiology and hematology scheduled. Objective Vital Signs and I&Os Vital Signs Date Time Temp Pulse Resp B/P B/P Pulse O2 O2 Flow FiO2 Mean Ox Delivery Rate 04/17 0923 98.4 95 17 134/87 04/17 0921 95 134/87 04/17 0805 98.4 95 17 134/87 96 Nasal Cannula 04/17 0801 96 Room Air 04/17 0800 95 Room Air Room Air 04/17 0105 97.7 72 18 112/80 96 Room Air 04/17 0000 96 Room Air 04/16 1737 98.0 97 18 124/76 96 04/16 1555 96 Room Air Intake & Output 04/17 1600 04/17 0800 04/17 0000 04/16 1600 04/16 0800 04/16 0000 Intake Total 560 300 400 Output Total Balance 560 300 400 Intake, Oral 560 300 400 Number 1 Bowel Movements Current Medications: Current Medications Sig/Sathya Start time Last Medication Dose Route Stop Time Status Admin Albuterol Sulfate 3 ML EVERY 4 HRS/AWAKE 04/14 1200 AC 04/17 INH 1112 Amoxicillin/ 875 MG Q12 04/14 2200 AC 04/17 Clavulanate Potassium PO 0922 Bisacodyl 5 MG DAILY 04/15 1000 AC 04/17 PO 0925 Carvedilol 12.5 MG BID 04/14 2200 AC 04/17 PO 0923 Clopidogrel Bisulfate 75 MG DAILY 04/14 1604 AC 04/17 PO 0923 Furosemide 20 MG DAILY 04/14 1003 AC 04/17 PO 0921 Lisinopril 5 MG DAILY 04/14 1002 AC 04/17 PO 0921 Multivitamins 1 TAB DAILY 04/14 1000 AC 04/17 PO 0921 Potassium Chloride 10 MEQ DAILY 04/14 1003 AC 04/17 PO 0923 Pravastatin Sodium 80 MG DAILY 04/14 1000 AC 04/17 PO 0921 Prednisone 10 MG DAILY 04/24 1000 AC PO 04/25 1001 Prednisone 20 MG DAILY 04/22 1000 AC PO 04/23 1001 Prednisone 30 MG DAILY 04/20 1000 AC PO 04/21 1001 Prednisone 40 MG DAILY 04/18 1000 AC PO 04/19 1001 Prednisone 50 MG DAILY 04/16 1000 DC 04/17 PO 04/17 1001 0921 Warfarin Sodium 3 MG COUMADIN 1700 ONE 04/17 1700 CAN PO 04/17 1701 Warfarin Sodium 7.5 MG COUMADIN 1700 ONE 04/17 1700 AC PO 04/17 1701 Warfarin Sodium 5 MG COUMADIN 1700 ONE 04/17 1700 CAN PO 04/17 1701 Zolpidem Tartrate 5 MG AT BEDTIME 04/14 220 AC 04/15 PO 2158 Results Last 48 Hrs of Labs/Mics: Laboratory Tests 04/17/17 0610: PT 28.5 H, INR 2.74 H 04/16/17 0600: PT 49.3 *H, INR 4.77 *H Assessment/Plan Assessment/Plan Assessment/Plan 1. History of previous CVAs/TIAs with possible recurrence 2. History of prior myocardial infarction with ischemic cardiomyopathy and previous left ventricular thrombus maintained on full anticoagulation with Coumadin 3. Paroxysmal atrial fibrillation on telemetry 4. Asthma 5. Medtronic AICD 6. Low level carotid disease Recommendations: - OOB as tolerated. - Continue current management - Maintain therapeutic INR -Discharged today. -Outpatient follow-up with cardiology and hematology arranged. Continue telemetry? No
--- NOTE | 2017-04-17 14:12 | PN- Pulmonary ---
Subjective HPI/Critical Care Issues: The patient continues to be fine. Discharge plan for today. Outpatient follow- up with cardiology and hematology scheduled. Stable wishes do go home at the bedside and she wishes the same Objective Current Medications: Current Medications Sig/Sathya Start time Last Medication Dose Route Stop Time Status Admin Albuterol Sulfate 3 ML EVERY 4 HRS/AWAKE 04/14 1200 DCD 04/17 INH 1112 Amoxicillin/ 875 MG Q12 04/14 2200 DCD 04/17 Clavulanate Potassium PO 0922 Bisacodyl 5 MG DAILY 04/15 1000 DCD 04/17 PO 0925 Carvedilol 12.5 MG BID 04/14 2200 DCD 04/17 PO 0923 Clopidogrel Bisulfate 75 MG DAILY 04/14 1604 DCD 04/17 PO 0923 Furosemide 20 MG DAILY 04/14 1003 DCD 04/17 PO 0921 Lisinopril 5 MG DAILY 04/14 1002 DCD 04/17 PO 0921 Multivitamins 1 TAB DAILY 04/14 1000 DCD 04/17 PO 0921 Potassium Chloride 10 MEQ DAILY 04/14 1003 DCD 04/17 PO 0923 Pravastatin Sodium 80 MG DAILY 04/14 1000 DCD 04/17 PO 0921 Prednisone 10 MG DAILY 04/24 1000 DCD PO 04/25 1001 Prednisone 20 MG DAILY 04/22 1000 DCD PO 04/23 1001 Prednisone 30 MG DAILY 04/20 1000 DCD PO 04/21 1001 Prednisone 40 MG DAILY 04/18 1000 DCD PO 04/19 1001 Prednisone 50 MG DAILY 04/16 1000 DC 04/17 PO 04/17 1001 0921 Warfarin Sodium 3 MG COUMADIN 1700 ONE 04/17 1700 CAN PO 04/17 1701 Warfarin Sodium 7.5 MG COUMADIN 1700 ONE 04/17 1700 DCD PO 04/17 1701 Warfarin Sodium 5 MG COUMADIN 1700 ONE 04/17 1700 CAN PO 04/17 1701 Zolpidem Tartrate 5 MG AT BEDTIME 04/14 220 DCD 04/15 PO 2158 Vital Signs & I&O Last 24 Hrs of Vitals and I&O: Vital Signs Date Time Temp Pulse Resp B/P B/P Pulse O2 O2 Flow FiO2 Mean Ox Delivery Rate 04/17 923 98.4 95 17 134/87 04/17 09 95 134/87 04/17 0805 98.4 95 17 134/87 96 Nasal Cannula 04/17 0801 96 Room Air 04/17 0800 95 Room Air Room Air 04/17 0105 97.7 72 18 112/80 96 Room Air 04/17 0000 96 Room Air 04/16 1737 98.0 97 18 124/76 96 04/16 1555 96 Room Air Impression/Plan Impression/Plan Impression/Plan: General: Nontoxic, no apparent distress. HEENT: Sclera and conjunctiva within normal limits, without xanthelasmas. Neck: Carotids 2+ without bruits. Respiratory: Clear to auscultation, air movement is good, without accessory respiratory muscle use. Heart: Regular rate and rhythm, without murmurs, without JVD. Abdomen: Soft, nontender, no masses, normoactive bowel sounds. Extremities: Without clubbing, cyanosis, without edema. Neuro: Right-sided facial weakness Skin: Within normal limits without 1. History of previous CVAs/TIAs with possible recurrence 2. History of prior myocardial infarction with ischemic cardiomyopathy and previous left ventricular thrombus maintained on full anticoagulation with Coumadin 3. Asthma 4. Medtronic AICD 5. Low level carotid disease REC Stable INR therapeutic Pt wishes to go home will dc on warfarin Pts is aware that he needs his INR done on tuesday am and she will bring him to the lab Plavix Pt aware needs out pt shamika geeal
== END 2017-04-17 13:44 | disposition home health service (06) ==
LOC: ERH 05:16 → 1NO 06:44 → ERHI 06:44 → ENRESERV 09:48 → ENTRNSPT 10:58 → 1NO 11:07 → EDTRNSPTTYP 11:16 → EDTRNSPT 11:16 → CMPTRNSPT 11:32 → 1NO 18:22 → ENPENDDIS 04-17 13:15 → 1NO 04-17 13:44
PROVIDERS: Internal Medicine Hematology & Oncology; Pediatrics; Student in an Organized Health Care Education/Training Program; ADMIT Internal Medicine
DX: I63.9 Cerebral infarction, unspecified (principal); I10 Essential (primary) hypertension; I69.320 Aphasia following cerebral infarction; I69.351 Hemiplegia and hemiparesis following cerebral infarction affecting right dominant side; I25.2 Old myocardial infarction; I25.5 Ischemic cardiomyopathy; Z95.810 Presence of automatic (implantable) cardiac defibrillator; I48.0 Paroxysmal atrial fibrillation; Z79.01 Long term (current) use of anticoagulants; E78.5 Hyperlipidemia, unspecified; D72.829 Elevated white blood cell count, unspecified; J44.9 Chronic obstructive pulmonary disease, unspecified
CPT/HCPCS: 1263; 36415; 81001; 82436; 92526-GN; 92610-GN; 93005; 93010; 93306; 96374; 96376; 97110-GO; 97161-GP; 97165-GO; 97530-GO; 97535-GO; G0378; G8996-GN; G8997-GN; G8998-GN; J1650; J2920; J3490